=== PATIENT | male | born 1955 | race Caucasian/White ===

== ENCOUNTER 2021-09-13 13:42 | Outpatient (CLI) | payer MEDICARE | END 2021-09-13 23:59 | disposition home or self-care (01) | LOC: CARD DIAG 13:42 | PROVIDERS: ATTEND Nurse Practitioner | DX: I08.0 Rheumatic disorders of both mitral and aortic valves (principal); I48.0 Paroxysmal atrial fibrillation | CPT/HCPCS: 93306 ==